=== PATIENT | male | born 1955 | race Caucasian/White ===

== ENCOUNTER 2016-11-14 21:09 | Emergency (ER) | payer OTHER ==
[~2016-11-14 21:09] MED LIST: FLO4 PO; LISINOPRIL10 MG; PROZ10; SENNA SOFT15 MG PO
[2016-11-14 23:37] VITALS: BP 138/90
== END 2016-11-14 23:41 | disposition home or self-care (01) ==
LOC: ED 21:09
DX: G89.4 Chronic pain syndrome (principal); M54.5 Low back pain; E11.40 Type 2 diabetes mellitus with diabetic neuropathy, unspecified; I10 Essential (primary) hypertension; Z86.79 Personal history of other diseases of the circulatory system

== ENCOUNTER 2017-03-16 16:43 | Emergency (ER) | payer OTHER ==
[~2017-03-16] VITALS: Ht 172.7 cm; Wt 108.0 kg
== END 2017-03-16 18:02 | disposition home or self-care (01) ==
LOC: ED 16:43
DX: S61.256A Open bite of right little finger without damage to nail, initial encounter (principal); L03.011 Cellulitis of right finger; I10 Essential (primary) hypertension; E11.9 Type 2 diabetes mellitus without complications; W54.0XXA Bitten by dog, initial encounter; Y93.89 Activity, other specified; Y92.89 Other specified places as the place of occurrence of the external cause; Y99.8 Other external cause status
CPT/HCPCS: 90715

== ENCOUNTER 2017-09-24 05:07 | Inpatient (IN) | payer OTHER ==
[~2017-09-24] VITALS: Ht 172.7 cm; Wt 102.2 kg
[2017-09-24] VITALS (8 sets, daily range): BP systolic 107–181; BP diastolic 49–92; Ht 172.7 cm; Wt 102.2 kg
[2017-09-24 05:45] LABS: BASOPHIL % 0.6 % (0-2); PLATELET COUNT 257 x10^3mcL (130-400)
[2017-09-24 05:51] LABS: RED CELL DISTRIBUTION WIDTH 23.9 % (11.5-14.5)
[2017-09-24 05:56] LABS: CARBON DIOXIDE 22.6 mmol/L (21-32); CHLORIDE SERUM 100 mmol/L (98-107); CREATININE SERUM 0.9 mg/dL (0.7-1.3); GFR1 > 60 mL/min; GLUCOSE SERUM 235 mg/dL (74-106); POTASSIUM SERUM 4.1 mmol/L (3.5-5.1); SODIUM SERUM 128 mmol/L (136-145)
[2017-09-24 06:00] LABS: ALBUMIN 3.5 g/dL (3.4-5.0); ALKALINE PHOSPHATASE 80 U/L (46-116); ALT/SGPT 23 U/L (16-63); AST/SGOT 20 U/L (15-37); BILIRUBIN TOTAL 0.36 mg/dL (0.20-1.00); LIPASE 135 IU/L (73-393); TOTAL PROTEIN, SERUM 7.7 g/dL (6.4-8.2)
[2017-09-24] MEDS ORDERED: PERCOCET1 TA5 PO (07:43)
[2017-09-24] MEDS ORDERED: CITALOPRAM HYDR20 M1 PO (07:44)
[2017-09-24] MEDS ORDERED: GOOD SENSE ASPI81 M3 PO (07:44)
[2017-09-24 08:27] LABS: CHOLESTEROL/HDL RATIO 3.9; MAGNESIUM 1.9 mg/dL (1.8-2.4); PHOSPHOROUS 1.5 mg/dL (2.5-4.9)
[2017-09-24 08:30] LABS: FREE T4 1.15 ng/dL (0.76-1.46); FREE THYROXINE INDEX 3.4 ug/dL (1.4-4.5); T4(THYROXINE) 9.7 ug/dL (4.7-13.3)
[2017-09-24 08:31] LABS: T3 TOTAL 1.23 ng/mL
[2017-09-24] MEDS ORDERED: FLUOXETINE40 MG PO (09:46)
[2017-09-24 11:13] LABS: TOTAL IRON BINDING CAPACITY 420 ug/dL (250-450)
[2017-09-24 11:15] LABS: IRON 25 ug/dL (65-170)
[2017-09-24 11:39] LABS: RED BLOOD CELLS 4.28 M/mm3 (4.52-5.90)
[2017-09-24 13:32] LABS: microscopic required? YES; urine erythrocyte TRACE (NEGATIVE)
[2017-09-24 13:41] LABS: AMPHETAMINE QUAL UR NONE DETECTED (NEG <=1000)
[2017-09-24] MEDS ORDERED: GLYBURIDE5 MG PO (14:12)
[2017-09-24] MEDS ORDERED: LOP600 PO (14:13)
[2017-09-24] MEDS ORDERED: GLUCOTROL10 MG PO (14:13)
[2017-09-24] MEDS ORDERED: LIPITOR40 MG PO (14:14)
[2017-09-24] MEDS ORDERED: ACTOS45 M1 PO (14:14)
[2017-09-24 14:58] LABS: CALCIUM 8.1 mg/dL (8.5-10.1); CARBON DIOXIDE 25.3 mmol/L (21-32); CHLORIDE SERUM 102 mmol/L (98-107); CREATININE SERUM 0.8 mg/dL (0.7-1.3); GFR1 > 60 mL/min; GLUCOSE SERUM 190 mg/dL (74-106); POTASSIUM SERUM 4.6 mmol/L (3.5-5.1); SODIUM SERUM 136 mmol/L (136-145)
[2017-09-25 06:00] VITALS: BP 121/75
[2017-09-25 06:48] LABS: BASOPHIL % 0.9 % (0-2); PLATELET COUNT 245 x10^3mcL (130-400)
[2017-09-25 07:00] LABS: RED CELL DISTRIBUTION WIDTH 23.8 % (11.5-14.5)
[2017-09-25 07:01] LABS: rbc morphology (normal/abnorm) ABNORMAL (NORMAL)
[2017-09-25 07:22] LABS: MAGNESIUM 2.2 mg/dL (1.8-2.4); PHOSPHOROUS 2.9 mg/dL (2.5-4.9)
[2017-09-25 08:05] VITALS: BP 111/57
[2017-09-25 12:37] VITALS: BP 136/73
[2017-09-25 16:14] VITALS: BP 126/61
== END 2017-09-25 19:05 | disposition left against medical advice (07) | DRG 391 ==
LOC: ED 05:07 → DU 07:36
PROVIDERS: Emergency Medicine; Family Medicine
DX: K59.00 Constipation, unspecified (principal); N17.0 Acute kidney failure with tubular necrosis; N13.6 Pyonephrosis; E87.1 Hypo-osmolality and hyponatremia; J21.9 Acute bronchiolitis, unspecified; E86.0 Dehydration; E11.65 Type 2 diabetes mellitus with hyperglycemia; E11.51 Type 2 diabetes mellitus with diabetic peripheral angiopathy without gangrene; I10 Essential (primary) hypertension; I25.10 Atherosclerotic heart disease of native coronary artery without angina pectoris; E83.39 Other disorders of phosphorus metabolism; D50.9 Iron deficiency anemia, unspecified; F32.9 Major depressive disorder, single episode, unspecified; Z68.35 Body mass index [BMI] 35.0-35.9, adult; Z98.84 Bariatric surgery status; Z95.1 Presence of aortocoronary bypass graft; Z91.14 Patient's other noncompliance with medication regimen; Z53.29 Procedure and treatment not carried out because of patient's decision for other reasons
CPT/HCPCS: 82962; 83880; 84439; J0360; J0696; J0780; J1885; J1956; J2270; J2405; J3010; J3490; J7030; J7040; J7050; Q0092; Q9967